=== PATIENT | female | born 1995 | race Caucasian/White ===

== ENCOUNTER 2018-02-21 21:49 | Emergency (ER) | payer BC, OTHER ==
[~2018-02-21] VITALS: Ht 160 cm; Wt 48.1 kg
--- NOTE | 2018-02-21 22:06 | NUR ---
PT STATES SHE DID BRION[place] YOGA TODAY. AFTERWARDS, EXPERIENCED PAIN IN LEG, HAND CRAMPS & MARINO. PT A&OX4, RESP EVEN & UNLABORED, SPEECH CLEAR, SKIN WNL.
[2018-02-21] MEDS ORDERED: LEVO25TA4 PO (22:16)
[2018-02-21] MEDS ORDERED: METOCLOPRAMIDE 5 MG/ML, 2ML IVPush ONE (22:30)
[2018-02-21] MEDS ORDERED: SODIUM CHLORIDE 0.9% 1,000ML IVBOLUS ONE (22:30)
[2018-02-21] MEDS ORDERED: SODIUM CHLORIDE FLUSH 10ML SYR IVF ONE (22:30)
[2018-02-21] MEDS ORDERED: DIPHENHYDRAMINE 50 MG/ML, 1ML IVPush ONE (22:30)
--- NOTE | 2018-02-21 23:12 | NUR ---
PT REPORT TO JIL THORNTON; PT CARE TRANSFERRED
[2018-02-21] MEDS ORDERED: DIPHENHYDRAMINE 50 MG/ML, 1ML ONE (23:13)
[2018-02-21] MEDS ORDERED: METOCLOPRAMIDE 5 MG/ML, 2ML ONE (23:13)
[2018-02-21 23:24] VITALS: BP 105/63
--- NOTE | 2018-02-22 00:17 | NUR ---
erp at bedside for recheck.
== END 2018-02-22 00:47 | disposition home or self-care (01) ==
LOC: ED 23:51
DX: R11.2 Nausea with vomiting, unspecified (principal); G43.909 Migraine, unspecified, not intractable, without status migrainosus
CPT/HCPCS: 70450; 93005; 96361; 96374; 96375; 99284; J1200; J2765; J7030